=== PATIENT | female | born 1955 | race American Indian/Alaskan Native ===

== ENCOUNTER 2016-06-30 09:20 | Emergency (ER) | payer OTHER ==
[2016-06-30 09:23] VITALS: BP 159/67; PULSE 71; RESP 20; TEMP 97.3; O2SAT 98
--- NOTE | 2016-06-30 10:16 | ED PDOC ---
HPI: General Adult Time Seen by Provider: 06/30/16 10:12 Chief Complaint (Nursing): Lower Extremity Problem/Injury Chief Complaint (Provider): right ankle pain History Per: Patient History/Exam Limitations: no limitations Additional Complaint(s): 60yo female comes to the ED states she fell down the steps while inside and hurt her right foot. No right leg, right thigh or right knee pain. States she has difficulty moving her right 3rd, 4th, 5th toes. Also notes an abrasion to the left knee. Denies left leg, left knee or left foot pain. Past Medical History Vital Signs: Last Vital Signs Temp 97.3 F L 06/30/16 09:22 Pulse 71 06/30/16 09:22 Resp 20 06/30/16 09:22 BP 159/67 H 06/30/16 09:22 Pulse Ox 98 06/30/16 14:04 - Medical History PMH: Asthma - Home Medications Home Medications: Ambulatory Orders Medication Instructions Recorded Ibuprofen [Motrin Tab] 600 mg PO Q6 PRN #15 tab 06/30/16 oxyCODONE/Acetaminophen [Percocet 1 ea PO Q4 PRN #8 tab 06/30/16 5/325 mg Tab] traMADol [Ultram] 50 mg PO TID PRN #12 tab 06/30/16 - Allergies Allergies/Adverse Reactions: Allergies Allergy/AdvReac Type Severity Reaction Status Date / Time No Known Allergies Allergy Verified 06/30/16 09:23 Review of Systems ROS Statement: Except As Marked, All Systems Reviewed And Found Negative Musculoskeletal: Positive for: Foot Pain, Other (knee abrasion) Physical Exam - Reviewed Nursing Documentation Reviewed: Yes Vital Signs Reviewed: Yes - Physical Exam Appears: Positive for: Well, Non-toxic, No Acute Distress Head Exam: Positive for: ATRAUMATIC, NORMAL INSPECTION, NORMOCEPHALIC Skin: Positive for: Warm, Dry Eye Exam: Positive for: EOMI, PERRL Extremity: Positive for: Tenderness (+tenderness to distal right foot. -Right knee tenderness. -right ankle tenderness.), Other (Abrasion to right patella. ) Neurologic/Psych: Positive for: Alert, Oriented - ECG O2 Sat by Pulse Oximetry: 98 (RA) Pulse Ox Interpretation: Normal Medical Decision Making Medical Decision Makin: XR Right foot ordered to rule out fracture. Motrin 600mg for pain. 1400 XR Right Foot Impression; Nondisplaced comminuted fractures of the 4th and 5th metatarsal with associated soft tissue swelling. 1400 XR reviewed by me. Patient was seen by podiatry resident in the ED. Stable for discharge. Follow up with podiatry clinic instructed. Rx given. Return precautions given. Disposition - Clinical Impression Clinical Impression: Metatarsal bone fracture - Disposition Referrals: Podiatry Clinic [Outside] FAMILY PROVIDER,NO [Primary Care Provider] - Disposition: Routine/Home Disposition Time: 14:00 Additional Instructions: See podiatry clinic thursday as discussed. You will need further treatment for this injury. Do not bear weight on injured foot. Prescriptions: Ibuprofen [Motrin Tab] 600 mg PO Q6 PRN #15 tab PRN Reason: Pain, Moderate (4-7) oxyCODONE/Acetaminophen [Percocet 5/325 mg Tab] 1 ea PO Q4 PRN #8 tab PRN Reason: Pain, Severe (8-10) traMADol [Ultram] 50 mg PO TID PRN #12 tab PRN Reason: Pain, Moderate (4-7) Instructions: Foot Fracture in Adults (ED) Additional Comments - Additional Comments Additional Comments: Scribe Attestation: Documented by Juni Klein acting as a scribe for Anthony Dominguez DO. Provider Scribe Attestation: All medical record entries made by the Scribe were at my direction and personally dictated by me. I have reviewed the chart and agree that the record accurately reflects my personal performance of the history, physical exam, medical decision making, and the department course for this patient. I have also personally directed, reviewed, and agree with the discharge instructions and disposition.
--- NOTE | 2016-06-30 11:54 | RAD ---
PROCEDURE: Right Foot Radiographs. HISTORY: distal foot pain COMPARISON: None available. FINDINGS: BONES: Nondisplaced comminuted fractures of the 4th and 5th metatarsals. Remainder the visualized osseous structures appear intact. Calcaneal enthesophyte and heel spur. JOINTS: No dislocation. SOFT TISSUES: Soft tissue swelling. No evidence of radiopaque foreign body. OTHER FINDINGS: None. IMPRESSION: Nondisplaced comminuted fractures of the 4th and 5th metatarsals with associated soft tissue swelling.
--- NOTE | 2016-06-30 13:17 | CP.PCM.CON ---
History of Present Illness - History of Present Illness History of Present Illness: 60 year old female patient with PMHx of DM, HTN was seen at bedside ED after request for podiatry consultation. Patient presents with Right 4th and 5th metatarsal fractures [place]. Patient states that she was walking down the stairs and missed stepped, falling on to floor. She reports no other injuries except a small abrasion lesion to Left knee which is note actively bleeding at this time. Patient only complains of mild pain on palpation to right foot fracture site. Patient denies of any N/V/F/C or SOB today Past Patient History - Past Social History Smoking Status: Never Smoked - PULMONARY Hx Asthma: Yes - ENDOCRINE/METABOLIC Hx Diabetes Insipidus: Yes - PSYCHIATRIC Hx Substance Use: No - SURGICAL HISTORY Hx Hysterectomy: Yes Meds Allergies/Adverse Reactions: Allergies Allergy/AdvReac Type Severity Reaction Status Date / Time No Known Allergies Allergy Verified 06/30/16 09:23 Physical Exam - Constitutional Appears: Well, Non-toxic, No Acute Distress - Extremities Exam Additional comments: Bilateral lower extremities exam DERM: No open wound noted bilaterally. No ecchymosis noted to skin around the fracture site Right foot. No erythema noted. No clinical sign of acute infection is noted. No drainage. VASC: No edema noted around right foot at the site of fracture. Palpable DP and PT noted 2/4 bilaterally. [employer] less than 3 seconds to all digits bilaterally. NEURO: Protective sensation intact ORTHO: Pain on palpation to right foot 4th and 5th metatarsal - Neurological Exam Neurological exam: Alert, Oriented x3 - Psychiatric Exam Psychiatric exam: Normal Affect, Normal Mood - Skin Skin Exam: Normal Color, Warm Results - Vital Signs Recent Vital Signs: Last Vital Signs Temp 97.3 F L 06/30/16 09:22 Pulse 71 06/30/16 09:22 Resp 20 06/30/16 09:22 BP 159/67 H 06/30/16 09:22 Pulse Ox 98 06/30/16 10:16 Assessment & Plan - Assessment and Plan (Free Text) Assessment: 60 year old female patient with PMHx of DM and HTN presents with incomplete, spiral, minimally displaced fracture to Right 4th and 5th metatarsal neck. Plan: Patient was seen, evaluated and treated with all questions and concerns addressed labs and vitals reviewed discussed with attending Dr. Turpin Right foot Xray reveals radiolucency to the neck of right 4th and 5th metatarsal that is spiral in nature consistent with incomplete, minimally displaced fractures. Posterior splint was applied to right lower extremity Patient was advised to keep the dressings clean, dry and intact Patient was advised to return to clinic this Thursday
== END 2016-06-30 14:50 | disposition home or self-care (01) ==
LOC: H.ER 09:20
DX: S92.354A Nondisplaced fracture of fifth metatarsal bone, right foot, initial encounter for closed fracture (principal); W10.9XXA Fall (on) (from) unspecified stairs and steps, initial encounter; Y92.89 Other specified places as the place of occurrence of the external cause